=== PATIENT | male | born 1995 | race Caucasian/White ===

== ENCOUNTER 2020-05-23 14:37 | Emergency (ER) | payer OTHER ==
[~2020-05-23] VITALS: Ht 190.5 cm; Wt 79.4 kg
--- NOTE | 2020-05-24 14:33 | EKG ---
[facility] [address] [place], [place] [address] Signed Normal sinus rhythm Normal ECG No previous ECGs available Confirmed by ALEXYS ROSARIO MD ([id number]) on 05/24/2020 2:33:27 PM Electronically Signed By: LAEXYS ROSARIO MD 05/24/20 1433 PATIENT NAME: AYANA POWELL Electrocardiogram DATE OF : [birth year] PHYSICIAN: ALEXYS ROSARIO MD REPORT #: [id number] REPORT IS CONFIDENTIAL AND NOT TO BE RELEASED WITHOUT AUTHORIZATION
== END 2020-05-23 18:36 | disposition home or self-care (01) ==
LOC: ED 14:37
DX: F41.0 Panic disorder [episodic paroxysmal anxiety] (principal); Z88.8 Allergy status to other drugs, medicaments and biological substances
CPT/HCPCS: 71045; 80053; 83735; 84484; 85025; 93005; 93010; 99284-25